=== PATIENT | female | born 1995 | race Caucasian/White ===

== ENCOUNTER 2021-06-14 16:48 | Emergency (ER) | payer OTHER ==
[~2021-06-14] VITALS: Ht 165.1 cm; Wt 51.4 kg
[2021-06-14 16:56] VITALS: BP 105/63
[2021-06-14] MEDS ORDERED: TETRACAINE HCL/PF 0.5% OPTH 4 ML BTL OP ONE (18:15)
[2021-06-14] MEDS ORDERED: FLUORESCEIN OPTH STRIP 1 MG OP ONE (18:15)
[2021-06-14] MEDS ORDERED: TOBR5SOL17 LEFT EYE (18:36)
[2021-06-14 19:32] VITALS: BP 88/47
--- NOTE | 2021-06-14 19:34 | NUR ---
Patient discharged with v/s stable. Written and verbal after care instructions given and explained. Patient alert, oriented and verbalized understanding of instructions. Ambulatory with steady gait. All questions addressed prior to discharge. ID band removed. Patient advised to follow up with PMD. Rx of TOBRAMYCIN given. Patient educated on indication of medication including possible reaction and side effects. Opportunity to ask questions provided and answered.
== END 2021-06-14 19:32 | disposition home or self-care (01) ==
LOC: MED 16:48
DX: H16.002 Unspecified corneal ulcer, left eye (principal); Z79.899 Other long term (current) drug therapy
CPT/HCPCS: 90471; 90715; 99283